=== PATIENT | female | born 1965 | race Caucasian/White ===

== ENCOUNTER → 2016-12-03 | Outpatient (CLI) | payer MEDICARE, MEDICAID, OTHER | END | disposition home or self-care (01) | LOC: RAD.S 08:55 | PROC: 3E0R3KZ Introduction of Other Diagnostic Substance into Spinal Canal, Percutaneous Approach (ICD-10-PCS; principal; 2016-12-03) | DX: M47.817 Spondylosis without myelopathy or radiculopathy, lumbosacral region (principal); M71.38 Other bursal cyst, other site ==

== ENCOUNTER → 2016-12-06 | Outpatient (CLI) | payer MEDICARE, OTHER, MEDICAID | END | disposition home or self-care (01) | LOC: RAD.S 08:50 | PROC: 0S9C3ZZ Drainage of Right Knee Joint, Percutaneous Approach (ICD-10-PCS; principal; 2016-12-06) | DX: M47.817 Spondylosis without myelopathy or radiculopathy, lumbosacral region (principal); M71.38 Other bursal cyst, other site ==

== ENCOUNTER → 2016-12-09 | Outpatient (CLI) | payer MEDICARE, OTHER, MEDICAID | END | disposition home or self-care (01) | LOC: RAD.S 14:00 | PROC: 3E0R3KZ Introduction of Other Diagnostic Substance into Spinal Canal, Percutaneous Approach (ICD-10-PCS; principal; 2016-12-09) | DX: M47.817 Spondylosis without myelopathy or radiculopathy, lumbosacral region (principal); M71.38 Other bursal cyst, other site; Z98.890 Other specified postprocedural states ==